=== PATIENT | male | born 1960 | race Caucasian/White ===

== ENCOUNTER → 2017-07-22 08:38 | Outpatient (CLI) | payer BC | END | disposition home or self-care (01) | LOC: D.US 08:30 | DX: I12.9 Hypertensive chronic kidney disease with stage 1 through stage 4 chronic kidney disease, or unspecified chronic kidney disease (principal); N18.4 Chronic kidney disease, stage 4 (severe); D63.1 Anemia in chronic kidney disease; Z68.25 Body mass index [BMI] 25.0-25.9, adult ==

== ENCOUNTER 2020-03-04 07:34 | Day surgery (SDC) | payer BC ==
[~2020-03-04] VITALS: Ht 172.7 cm; Wt 72.7 kg
[2020-03-04 08:02] LABS: ANION GAP 11.5 mmol/L (8-16); CALCIUM 8.9 mg/dL (8.5-10.1); CARBON DIOXIDE 27.4 mmol/L (21.0-32.0); CREATININE - SERUM 2.5 mg/dL (0.6-1.3); POTASSIUM - SERUM 3.9 mmol/L (3.5-5.1)
[2020-03-04 08:03] LABS: BASOPHILS 0.2 % (0-2); HEMATOCRIT 36.2 % (42.0-54.0); HEMOGLOBIN 11.7 g/dL (13.5-17.5); LYMPHOCYTES 13.4 % (15-50); MCH 31.5 pg (26.0-34.0); MCHC 32.3 g/dL (31.0-37.0); MCV 97.6 fL (80.0-100.0); MEAN PLATELET VOLUME 8.9 fL (7.4-10.4); MONOCYTES 8.3 % (2-11); NEUTROPHILS 76.1 % (40-80); PLATELET COUNT 147 10x3/uL (130-400); RBC 3.71 10x6/uL (4.20-6.10); RDW 15.3 % (11.5-14.5); WBC 4.6 10x3/uL (4.8-10.8)
[2020-03-04 08:13] LABS: APTT 27.1 SECONDS (22.8-39.4); INR 0.99 (0.85-1.17)
[2020-03-04 09:27] VITALS: BP 177/107; Ht 172.7 cm; Wt 72.7 kg
[2020-03-04] MEDS ORDERED: COREG6.25 MG PO (09:41)
[2020-03-04] MEDS ORDERED: CARDURA4 MG PO (09:41)
[2020-03-04] MEDS ORDERED: NORVASC5 MG PO (09:42)
[2020-03-04] MEDS ORDERED: LIPITOR20 MG PO (09:42)
[2020-03-04] MEDS ORDERED: VELTASSA8.4 GM PO (09:42)
[2020-03-04] MEDS ORDERED: SODIUM BICARBO650 MG PO (09:44)
[2020-03-04] MEDS ORDERED: RETACRIT IJ (09:44)
[2020-03-04 16:04] VITALS: BP 155/93
[2020-03-04 20:00] VITALS: BP 156/87
[2020-03-05] VITALS: BP 147/92
[2020-03-05 04:00] VITALS: BP 139/78
[2020-03-05 06:17] LABS: BASOPHILS 0.2 % (0-2); EOSINOPHILS 2.5 % (0-7); HEMATOCRIT 32.1 % (42.0-54.0); IMMATURE GRANULOCYTES 0.2 % (0-5); LYMPHOCYTES 18.1 % (15-50); MCH 30.9 pg (26.0-34.0); MCHC 31.2 g/dL (31.0-37.0); MCV 99.1 fL (80.0-100.0); MEAN PLATELET VOLUME 9.2 fL (7.4-10.4); MONOCYTES 9.2 % (2-11); NEUTROPHILS 69.8 % (40-80); PLATELET COUNT 137 10x3/uL (130-400); RBC 3.24 10x6/uL (4.20-6.10); RDW 15.5 % (11.5-14.5); WBC 5.2 10x3/uL (4.8-10.8)
[2020-03-05 06:30] LABS: CALCIUM 8.9 mg/dL (8.5-10.1); CARBON DIOXIDE 26.9 mmol/L (21.0-32.0); CREATININE - SERUM 2.4 mg/dL (0.6-1.3); POTASSIUM - SERUM 3.9 mmol/L (3.5-5.1)
--- NOTE | 2020-03-05 07:30 | NUR ---
PATIENT IS SITTING UP IN BED READY FOR DC. EXPLAINED THAT DR WILL NEED TO DC HIM FIRST. CONTINUE WITH PLAN OF CARE
[2020-03-05 09:46] VITALS: BP 166/96
== END 2020-03-05 10:28 | disposition home or self-care (01) ==
LOC: D.MS 07:34 → D.SP 07:34 → D.RAD 10:00 → D.SP 10:00 → D.MS 11:45 → D.SP 03-05 10:28
PROVIDERS: Radiology Diagnostic Radiology; ATTEND Internal Medicine
DX: I12.9 Hypertensive chronic kidney disease with stage 1 through stage 4 chronic kidney disease, or unspecified chronic kidney disease (principal); N18.4 Chronic kidney disease, stage 4 (severe)